=== PATIENT | female | born 1950 | race Caucasian/White ===

== ENCOUNTER → 2017-12-26 | Outpatient (CLI) | payer MEDICARE, BC ==
[~2017-12-26] VITALS: Ht 162.6 cm; Wt 59.0 kg
[~2017-12-26] MED LIST: CATHETER FLUSH 10 ML SYR IV PRN
[2017-12-26 09:23] VITALS: BP 132/85
[2017-12-26 09:31] VITALS: BP 144/66
--- NOTE | 2017-12-26 14:53 | STRESS TEST ---
DATE OF SERVICE: 12/26/2017 EXERCISE MYOVIEW STRESS TEST REPORT REFERRING PHYSICIAN: Dr. Alexus Cabrera. Baseline heart rate is 67, baseline blood pressure 143/85. Baseline EKG is sinus rhythm with no ischemic changes. In summary, the patient was injected with 10.97 mCi of technetium-99 Myoview and the resting images were obtained. Then, the patient started exercising with a baseline heart rate, blood pressure and EKG mentioned above. The patient was able to exercise for 3 minutes and 15 seconds on standard Marvin protocol. Test was terminated secondary to fatigue. EKG was showing minimal nondiagnostic changes. During recovery, heart rate and blood pressure returned to baseline. EKG returned to baseline. The resting and stress images were reviewed and compared in the short axis, horizontal long axis, and vertical long axis views. Review of the images showed good radiotracer uptake with no significant ischemia or infarction on SPECT images. There is mild decreased uptake at the base of the anterior septum. SSS is 4. SDS is 4. TID value 0.96. On the gated images, the left ventricle appeared to be normal size with normal contractility. Calculated ejection fraction 90%, I believe it is an overestimation. CONCLUSION: 1. Poor exercise tolerance, a total of 3 minutes 15 seconds on Marvin protocol, total of 4.8 METS achieving 100% of maximum expected heart rate. 2. Appropriate heart rate and blood pressure response to exercise returned to baseline during recovery. 3. Nondiagnostic EKG changes with exercise returned to baseline during recovery. 4. No ischemia or infarction on SPECT images. 5. Normal left ventricular size with normal contractility. Calculated ejection fraction 90%, I believe it is an overestimation. Job ID: [id number] DocumentID: [id number] Dictated Date: 12/26/2017 14:42:37 Claims Correspondence Clerk Date: 12/26/2017 14:53:14 Dictated By: MARTHA MARINA MD
== END ==
LOC: CARD 07:34
PROVIDERS: ATTEND Internal Medicine Cardiovascular Disease
DX: I10 Essential (primary) hypertension (principal); R00.2 Palpitations; E78.2 Mixed hyperlipidemia; Z90.13 Acquired absence of bilateral breasts and nipples; Z82.49 Family history of ischemic heart disease and other diseases of the circulatory system
CPT/HCPCS: 78452; 93017

== ENCOUNTER 2019-04-01 05:40 | Outpatient (CLI) | payer BC, MEDICARE ==
[~2019-04-01] VITALS: Ht 160 cm; Wt 60.9 kg
[2019-04-01] MEDS ORDERED: OMEP40CA27 PO (14:17)
[2019-04-01] MEDS ORDERED: METO50TA7 PO (14:17)
[2019-04-01] MEDS ORDERED: SIMV20TA26 PO (14:17)
[2019-04-01] MEDS ORDERED: MV-M1TAB57 PO (14:17)
[2019-04-01] MEDS ORDERED: VNL75T PO (14:17)
== END 2019-04-01 14:23 | disposition home or self-care (01) ==
LOC: PREOP 05:40
PROVIDERS: ATTEND Specialist
DX: Z01.818 Encounter for other preprocedural examination (principal)

== ENCOUNTER 2019-04-04 08:15 | Day surgery (SDC) | payer BC, MEDICARE ==
[~2019-04-04] VITALS: Ht 160 cm; Wt 60.9 kg
[~2019-04-04 08:15] MED LIST changes: -CATHETER FLUSH 10 ML SYR IV PRN; +METO50TA7 PO; +MV-M1TAB57 PO; +OMEP40CA27 PO; +SIMV20TA26 PO; +VNL75T PO
[2019-04-04] MEDS ORDERED: MOXIFLOXACIN OPHTH SOLN 5 MG/ML 0.3 ML SYRINGE OP ONE (08:45)
[2019-04-04] MEDS ORDERED: LIDOCAINE PF 1% 2 ML VIAL IR PRN (08:45)
[2019-04-04] MEDS ORDERED: TIMOLOL MALEATE 0.5% 5 ML (TIMOPTIC) BTL OU PRN (08:45)
[2019-04-04] MEDS ORDERED: POVIDONE (BETADINE) OPHTH SOLN 5% 30 ML OP ONE (08:45)
[2019-04-04] MEDS: TETRACAINE 0.5% OPHTH SOLN 4 ML BTL (SINGLE DOSE ONLY) OU PRN ×4 (08:50→09:19)
[2019-04-04 08:55] VITALS: BP 111/83
[2019-04-04] MEDS: CYCLOPENTOLATE 1% (CYCLOGYL) 2 ML DROPS OP SCH ×3 (09:09→09:19)
[2019-04-04] MEDS: PHENYLEPHRINE 10% OPHTH (NEO-SYN) 5 ML BTL OU SCH ×3 (09:09→09:19)
--- NOTE | 2019-04-04 09:45 | Ophthalmologist Pre-Op Note ---
Pre-Operative Progress Note H&P Reviewed The H&P was reviewed, patient examined and no changes noted. Date H&P Reviewed: Apr 04, 2019 Time H&P Reviewed: 09:45 Pre-Op Dx Cataract, Right Eye OSIRIS JORDAN MD Apr 04, 2019 09:45
[2019-04-04] MEDS ORDERED: MIDAZOLAM 2 MG/2 ML (VERSED) VIAL ONE (09:48)
[2019-04-04] MEDS ORDERED: acetaZOLAMIDE ER 500 MG CAP (DIAMOX SEQUELS) PO ONE (10:00)
--- NOTE | 2019-04-04 10:09 | Ophthalmology Operative Report ---
Cataract removal/placement IOL PREOPERATIVE DIAGNOSIS: Cataract Right Eye POSTOPERATIVE DIAGNOSIS: Cataract Right Eye PROCEDURE: Cataract removal and placement of posterior chamber implant, right eye SURGEON: Bryant Jordan ANESTHESIA: Topical with sedation COMPLICATIONS: None ESTIMATED BLOOD LOSS: Minimal DESCRIPTION OF PROCEDURE: After proper informed consent was obtained, the patient, a 68 female, was taken to the Operating Room and the right eye was anesthetized with tetracaine. The right eye was then prepped and draped in the usual manner. A wire lid speculum was placed. A paracentesis was made at the left hand position. Preservative free lidocaine was injected into the anterior chamber followed by viscoelastic. A clear corneal incision was made in the temporal position. A capsulorrhexis was preformed and the central nuclear and cortical material were removed. The posterior capsule was polished and Tim 17.0 AU00T0 IOL was placed into the capsular bag. The residual viscoelastic was aspirated and balanced saline solution was injected into the anterior chamber. Moxifloxacin was injected into the anterior chamber. The wound was checked and found to be water tight. The patient tolerated the procedure well without complications. BRYANT JORDAN MD Apr 04, 2019 10:09
[2019-04-04 10:19] VITALS: BP 110/68
--- NOTE | 2019-04-04 14:27 | Anesthesia-General Post-Op ---
MAC Patient Condition Mental Status/LOC: Same as Preop Cardiovascular: Satisfactory Nausea/Vomiting: Absent Respiratory: Satisfactory Pain: Controlled Complications: Absent Post Op Complications Complications None Follow Up Care/Instructions Patient Instructions None needed. Anesthesiology Discharge Order Discharge Order Patient is doing well, no complaints, stable vital signs, no apparent adverse anesthesia problems. No complications reported per nursing. EDSON BASS CRNA Apr 04, 2019 14:27
== END 2019-04-04 10:18 | disposition home or self-care (01) ==
LOC: SDC 08:15
PROVIDERS: ATTEND Specialist
DX: H25.11 Age-related nuclear cataract, right eye (principal); I10 Essential (primary) hypertension; E78.5 Hyperlipidemia, unspecified; M81.0 Age-related osteoporosis without current pathological fracture; F32.9 Major depressive disorder, single episode, unspecified; Z79.899 Other long term (current) drug therapy; Z90.89 Acquired absence of other organs; Z90.710 Acquired absence of both cervix and uterus; Z90.13 Acquired absence of bilateral breasts and nipples; Z83.518 Family history of other specified eye disorder; Z80.59 Family history of malignant neoplasm of other urinary tract organ

== ENCOUNTER 2019-04-11 08:05 | Day surgery (SDC) | payer BC, MEDICARE ==
[~2019-04-11] VITALS: Ht 164 cm; Wt 60.9 kg
[2019-04-11 08:05] VITALS: BP 129/79
[2019-04-11] MEDS ORDERED: LIDOCAINE PF 1% 2 ML VIAL IR PRN (08:15)
[2019-04-11] MEDS: TETRACAINE 0.5% OPHTH SOLN 4 ML BTL (SINGLE DOSE ONLY) OU PRN ×4 (08:15→08:47)
[2019-04-11] MEDS ORDERED: POVIDONE (BETADINE) OPHTH SOLN 5% 30 ML OP ONE (08:15)
[2019-04-11] MEDS ORDERED: MOXIFLOXACIN OPHTH SOLN 5 MG/ML 0.3 ML SYRINGE OP ONE (08:15)
[2019-04-11] MEDS ORDERED: TIMOLOL MALEATE 0.5% 5 ML (TIMOPTIC) BTL OU PRN (08:15)
[2019-04-11] MEDS: PHENYLEPHRINE 10% OPHTH (NEO-SYN) 5 ML BTL OU SCH ×3 (08:26→08:47)
[2019-04-11] MEDS: CYCLOPENTOLATE 1% (CYCLOGYL) 2 ML DROPS OP SCH ×3 (08:26→08:47)
--- NOTE | 2019-04-11 08:31 | Ophthalmologist Pre-Op Note ---
Pre-Operative Progress Note H&P Reviewed The H&P was reviewed, patient examined and no changes noted. Date H&P Reviewed: Apr 11, 2019 Time H&P Reviewed: 08:31 Pre-Op Dx Cataract, Left Eye OSIRIS OJRDAN MD Apr 11, 2019 08:31
[2019-04-11] MEDS ORDERED: MIDAZOLAM 2 MG/2 ML (VERSED) VIAL ONE (09:02)
--- NOTE | 2019-04-11 09:15 | Ophthalmology Operative Report ---
Cataract removal/placement IOL PREOPERATIVE DIAGNOSIS: Cataract Left Eye POSTOPERATIVE DIAGNOSIS: Cataract Left Eye PROCEDURE: Cataract removal and placement of posterior chamber implant, left eye SURGEON: Bryant Jordan ANESTHESIA: Topical with sedation COMPLICATIONS: None ESTIMATED BLOOD LOSS: Minimal DESCRIPTION OF PROCEDURE: After proper informed consent was obtained, the patient, a 68 female, was taken to the Operating Room and the left eye was anesthetized with tetracaine. The left eye was then prepped and draped in the usual manner. A wire lid speculum was placed. A paracentesis was made at the left hand position. Preservative free lidocaine was injected into the anterior chamber followed by viscoelastic. A clear corneal incision was made in the temporal position. A capsulorrhexis was preformed and the central nuclear and cortical material were removed. The posterior capsule was polished and an Tim 17.0 AU00T0 was placed into the capsular bag. The residual viscoelastic was aspirated and balanced saline solution was injected into the anterior chamber. Moxifloxacin was injected into the anterior chamber. The wound was checked and found to be water tight. The patient tolerated the procedure well without complications. BRYANT JORDAN MD Apr 11, 2019 09:15
[2019-04-11 09:20] VITALS: BP 110/71
[2019-04-11] MEDS ORDERED: acetaZOLAMIDE ER 500 MG CAP (DIAMOX SEQUELS) PO ONE (09:30)
--- NOTE | 2019-04-11 11:34 | Anesthesia-General Post-Op ---
MAC Patient Condition Mental Status/LOC: Same as Preop Cardiovascular: Satisfactory Nausea/Vomiting: Absent Respiratory: Satisfactory Pain: Controlled Complications: Absent Post Op Complications Complications None Follow Up Care/Instructions Patient Instructions None needed. Anesthesiology Discharge Order Discharge Order Patient was seen this morning after the procedure and she was doing well, no complaints, stable vital signs, no apparent adverse anesthesia problems. RITU CARTER DO Apr 11, 2019 11:34
== END 2019-04-11 09:20 | disposition home or self-care (01) ==
LOC: SDC 08:05
PROVIDERS: ATTEND Specialist
DX: H25.12 Age-related nuclear cataract, left eye (principal); I10 Essential (primary) hypertension; E78.5 Hyperlipidemia, unspecified; M19.90 Unspecified osteoarthritis, unspecified site; M81.0 Age-related osteoporosis without current pathological fracture; F32.9 Major depressive disorder, single episode, unspecified; Z90.710 Acquired absence of both cervix and uterus; Z79.899 Other long term (current) drug therapy; Z90.10 Acquired absence of unspecified breast and nipple; Z90.89 Acquired absence of other organs; Z83.518 Family history of other specified eye disorder; Z80.49 Family history of malignant neoplasm of other genital organs

== ENCOUNTER → 2021-10-12 | Outpatient (CLI) | payer BC, MEDICARE ==
[~2021-10-12] MED LIST changes: -OMEP40CA27 PO; +OMEP40CA6 PO
== END ==
LOC: CARD 12:00
PROVIDERS: ATTEND Physician Assistant
DX: I10 Essential (primary) hypertension (principal)
CPT/HCPCS: 93306

== ENCOUNTER → 2021-11-02 | Outpatient (CLI) | payer BC, MEDICARE ==
[~2021-11-02] VITALS: Ht 160 cm; Wt 58.0 kg
[~2021-11-02] MED LIST changes: +CATHETER FLUSH 10 ML SYR IVP PRN
[2021-11-02 09:04] VITALS: BP 138/89
--- NOTE | 2021-11-02 11:07 | Cardiology Stress Test Report ---
Stress Test Report Date of Procedure/Referring: Date of Procedure: Nov 02, 2021 PCP Re Burrows MD Admitting Physician Admitting Physician: Attending Physician: Tatum Green Indications: HTN Baseline Heart Rate: 79 Baseline Blood Pressure: Blood Pressure Systolic: 138 Blood Pressure Diastolic: 89 Vital Signs Date Time Temp Pulse Resp B/P (MAP) Pulse Ox O2 Delivery O2 Flow Rate FiO2 11/02/21 09:04 79 138/89 (105) Baseline Vital Signs Vital Signs Date Time Temp Pulse Resp B/P (MAP) Pulse Ox O2 Delivery O2 Flow Rate FiO2 11/02/21 09:04 79 138/89 (105) Baseline EKG: Baseline EKG: NSR Summary: After explaining the procedure and details to the patient, she signed the consent and was brought to the stress nuclear laboratory. Patient exercised on standard Marvin protocol, EKG, heart rate and blood pressure were monitored continuously, resting and stress doses of radio tracer were injected, imaging was acquired and reviewed in the short axis, horizontal long axis and vertical long axis views Patient was able to exercise for a total of 3.30 minutes on Marvin protocol, METs 5.2 Maximum heart rate 144 Maximum blood pressure 173/90 Stress EKG, Minimal nondiagnostic changes Recovery EKG, Return to baseline TID: 0.93 SSS: 2 SDS: 2 EF: 92 Conclusion: 1. Fair exercise tolerance for 3 minutes and 30 seconds on standard Marvin protocol, 5.2 METS achieving 96% of maximum expected heart rate 2. Appropriate heart rate and blood pressure response to exercise return to baseline during recovery 3. Nondiagnostic EKG changes with exercise return to baseline during recovery 4. No significant ischemia or infarction on SPECT images 5. Small left ventricular size with calculated ejection fraction 92%, I believe it is an overestimation due to the small left ventricular size. Copy Copies To 1: RE BURROWS MD, BASHAR J MD Nov 02, 2021 11:07
== END ==
LOC: CARD 07:30
PROVIDERS: ATTEND Physician Assistant
DX: I10 Essential (primary) hypertension (principal)
CPT/HCPCS: 78452; 93017; A9502